=== PATIENT | female | born 1950 | race Caucasian/White ===

== ENCOUNTER 2023-07-03 16:47 | Emergency (ER) | payer MEDICAID, OTHER ==
[~2023-07-03] VITALS: Ht 154.9 cm; Wt 68.0 kg
[2023-07-03 16:49] VITALS: O2SAT 100
[2023-07-03] MEDS ORDERED: ONDANSETRON HCL 4MG/2ML INJ IV STA (16:54)
[2023-07-03] MEDS ORDERED: SODIUM CHLORIDE 0.9% 1,000 ML IV ONE (17:00)
[2023-07-03 18:11] LABS: EOSINOPHILS % 0.9 % (0.0-5.0); HEMATOCRIT. 41.2 % (36.0-48.0); HEMOGLOBIN. 13.9 g/dL (12.0-16.0); LYMPHOCYTES % 9.5 % (20.0-50.0); MEAN CORPUSCULAR HEMOGLOBIN 29.6 pg (28.0-32.0); MEAN CORPUSCULAR HGB CONC 33.8 g/dL (31.0-37.0); MEAN CORPUSCULAR VOLUME 87.6 fL (81.0-99.0); MEAN PLATELET VOLUME 8.6 fl (7.4-10.4); MONOCYTES % 9.7 % (2.0-8.0); NEUTROPHILS % 78.9 % (40.0-76.0); PLATELET 125 x1000/uL (130-400); RED CELL DISTRIBUTION WIDTH 13.5 % (11.6-14.6); WHITE BLOOD COUNT 7.6 x1000/uL (4.5-11.0)
[2023-07-03 18:20] LABS: CHLORIDE 106 mEq/L (98-107); INDEX HEMOLYSI 1 (1-3); INDEX ICTERIC 1 (1-4); INDEX LIPEMIC 1 (1-3); POTASSIUM 4.1 mEq/L (3.5-5.1); SODIUM 137 mEq/L (136-145)
[2023-07-03 18:36] LABS: ALANINE AMINOTRANSFERASE 32 IU/L (13-61); ALBUMIN 3.3 g/dL (3.4-5.0); ASPARTATE AMINOTRANSFERASE 33 IU/L (15-37); BILIRUBIN TOTAL 0.5 mg/dL (0.1-1.0); CALCIUM 8.3 mg/dL (8.5-10.1); CARBON DIOXIDE 28 mEq/L (21-32); CREATININE 0.7 mg/dL (0.6-1.3); GLUCOSE 118 mg/dL (70-105); PROTEIN TOTAL 7.3 g/dL (6.0-8.3); TROPONIN I HIGH SENSITIVITY 23 ng/L (<54); UREA NITROGEN BLOOD 17 mg/dL (7-21)
[2023-07-03 21:18] LABS: CLARITY URINE CLEAR (CLEAR); COLOR URINE YELLOW (YELLOW); GLUCOSE URINE 3+ (NEGATIVE); KETONES URINE 1+ (NEGATIVE); LEUKOCYTE ESTERASE URINE TRACE (NEGATIVE); NITRITE URINE POSITIVE (NEGATIVE); OCCULT BLOOD URINE 1+ (NEGATIVE); PH URINE 5.5 (4.5-8.0); PROTEIN URINE 2+ (NEGATIVE); SPECIFIC GRAVITY URINE 1.026 (1.005-1.030)
[2023-07-03 21:49] LABS: BACTERIA URINE 4+; RBC URINE 0-2 /hpf (0-2); SQUAMOUS EPITHELIAL CELL URINE RARE /lpf (RARE/1+)
[2023-07-03] MEDS ORDERED: CEFP200T13 MT (23:25)
[2023-07-03] MEDS ORDERED: CEFTRIAXONE 1GM PREMIX 50 ML IV ONE (23:30)
[2023-07-04] MEDS ORDERED: ONDANSETRON HCL 4MG/2ML INJ IV NR (00:30)
[2023-07-04 03:50] VITALS: BP 155/61; PULSE 73; RESP 16; TEMP 98.3
== END 2023-07-04 04:00 | disposition home or self-care (01) ==
LOC: ER 16:47
DX: R53.1 Weakness (principal); R11.2 Nausea with vomiting, unspecified; E11.9 Type 2 diabetes mellitus without complications; E78.00 Pure hypercholesterolemia, unspecified; I10 Essential (primary) hypertension
CPT/HCPCS: 80053; 81003; 83690; 85025; 87086; 87186; 84484; 87077; 36415; 71045; 96365; 99284; 96375; J7030; J0696; J2405; Z7610

== ENCOUNTER 2025-10-31 23:18 | Inpatient (IN) | payer MEDICAID ==
[~2025-10-31] VITALS: Ht 157.5 cm; Wt 65.3 kg
[~2025-10-31 23:18] MED LIST: CEFP200T13 MT
[2025-10-31] MEDS: SODIUM CHLORIDE 0.9% 1,000 ML IV ONE (23:38)
[2025-10-31] MEDS: KETOROLAC 15MG/ML VIAL IV ONE (23:45)
[2025-10-31] MEDS: METOCLOPRAMIDE HCL 10MG/2ML VIAL IV ONE (23:45)
[2025-10-31 23:58] LABS: HEMATOCRIT. 46.0 % (36.0-48.0); HEMOGLOBIN. 15.1 g/dL (12.0-16.0); MEAN PLATELET VOLUME 9.3 fl (7.4-10.4); PLATELET 157 x1000/uL (130-400); RED BLOOD CELL COUNT 5.15 mill/uL (4.2-5.4); RED CELL DISTRIBUTION WIDTH 13.6 % (11.6-14.6)
[2025-11-01] VITALS (8 sets, daily range): BP systolic 106–171; BP diastolic 50–86; PULSE 80–138; RESP 18–20; TEMP 36.3–37.1; O2SAT 90–98
[2025-11-01 00:06] LABS: CREATININE 0.7 mg/dL (0.6-1.0); PROTEIN TOTAL 5.7 g/dL (6.0-8.3); UREA NITROGEN BLOOD 11 mg/dL (9-23)
[2025-11-01 00:07] LABS: ASPARTATE AMINOTRANSFERASE 18 IU/L (<34); BILIRUBIN DIRECT 0.2 mg/dL (<=3.0); TROPONIN I HIGH SENSITIVITY 5 ng/L (3.0-34)
[2025-11-01 00:08] LABS: BILIRUBIN TOTAL 0.5 mg/dL (0.1-1.0)
[2025-11-01] MEDS: ACETAMINOPHEN 500MG TABLET PO ONE (00:31)
[2025-11-01] MEDS: PIPERACILLIN/TAZO 3.375G/50ML 50 ML IV ONE (00:38)
[2025-11-01] MEDS: SODIUM CHLORIDE 0.9% 1,000 ML IV ONE (00:45)
[2025-11-01] MEDS: DILTIAZEM HCL 5MG/ML 5ML VIAL IV ONE (00:51)
[2025-11-01 01:09] LABS: CLARITY URINE CLOUDY (CLEAR); COLOR URINE YELLOW (YELLOW); GLUCOSE URINE 3+ (NEGATIVE); KETONES URINE 2+ (NEGATIVE); LEUKOCYTE ESTERASE URINE 1+ (NEGATIVE); NITRITE URINE NEGATIVE (NEGATIVE); OCCULT BLOOD URINE 2+ (NEGATIVE); PH URINE 5.5 (4.5-8.0); PROTEIN URINE 2+ (NEGATIVE); SPECIFIC GRAVITY URINE 1.039 (1.005-1.030); UROBILINOGEN URINE 0.2 E.U./dL (0.2-1.0)
[2025-11-01] MEDS: VANCOMYCIN 1G PREMIX 200 ML IV ONE (01:35)
[2025-11-01 01:44] LABS: SQUAMOUS EPITHELIAL CELL URINE 3+ /lpf (RARE/1+)
[2025-11-01 01:45] LABS: BACTERIA URINE 1+; WBC URINE 25-50 /hpf (0-2)
[2025-11-01 03:56] LABS: EOSINOPHILS % MANUAL 1.0 % (0.0-5.0); LYMPHOCYTES % MANUAL 4.0 % (20.0-60.0); MONOCYTES % MANUAL 3.0 % (2.0-8.0); NEUTROPHILS % MANUAL 92.0 % (45.0-75.0)
[2025-11-01 03:57] LABS: PLATELET ESTIMATE NORMAL
[2025-11-01] MEDS ORDERED: IOHEXOL-350 100 ML BOTTLE ONE (04:21)
[2025-11-01 04:37] LABS: INFLUENZA TYPE A Presumptive Negative (Pres. Neg.); INFLUENZA TYPE B Presumptive Negative (Pres. Neg.)
[2025-11-01 04:38] LABS: RESPIRATORY SYNCYTIAL VIRUS Not Detected (Not Detectd)
[2025-11-01] MEDS ORDERED: EMPA10TA MT (05:08)
[2025-11-01] MEDS ORDERED: APIX5TAB MT (05:09)
[2025-11-01] MEDS ORDERED: METO-396 PO (05:11)
[2025-11-01] MEDS ORDERED: VALS80TA30 PO (05:12)
[2025-11-01] MEDS ORDERED: GLIM2TAB30 MT (05:13)
[2025-11-01] MEDS ORDERED: DEXTROSE 50% WATER 50ML SYRINGE IV PRN (05:30)
[2025-11-01] MEDS: GLIMEPIRIDE 2MG TABLET PO SCH (07:20)
[2025-11-01] MEDS: BLOOD SUGAR DIAGNOSTIC STRIP TEST SCH (07:47)
[2025-11-01] MEDS: INSULIN LISPRO 100 UNITS/ML SUBCUT SCH (07:48)
[2025-11-01] MEDS: LOSARTAN 50 MG TABLET PO SCH (10:13)
[2025-11-01] MEDS: METOPROLOL TARTRATE 25MG TABLET PO SCH (10:13)
[2025-11-01] MEDS: EMPAGLIFLOZIN 10MG TABLET PO SCH (10:13)
[2025-11-01] MEDS: APIXABAN 5 MG TABLET PO SCH (10:13)
[2025-11-01] MEDS: ACETAMINOPHEN 325MG TABLET PO PRN (10:30)
[2025-11-01 12:28] LABS: HEMATOCRIT. 44.0 % (36.0-48.0); HEMOGLOBIN. 14.4 g/dL (12.0-16.0); MEAN PLATELET VOLUME 8.7 fl (7.4-10.4); PLATELET 123 x1000/uL (130-400); RED BLOOD CELL COUNT 4.94 mill/uL (4.2-5.4); RED CELL DISTRIBUTION WIDTH 13.5 % (11.6-14.6)
[2025-11-01] MEDS: IPRATROPIUM/ALBUTEROL 0.5-3(2.5)MG/3ML NEB HHN SCH (12:30)
[2025-11-01 13:22] LABS: HEPATITIS C AB NON REACTIVE (Neg) (Negative)
[2025-11-01 15:22] LABS: BAND% 12.0 % (1.0-6.0); EOSINOPHILS % MANUAL 1.0 % (0.0-5.0); LYMPHOCYTES % MANUAL 5.0 % (20.0-60.0); MONOCYTES % MANUAL 6.0 % (2.0-8.0); NEUTROPHILS % MANUAL 76.0 % (45.0-75.0)
[2025-11-01 15:23] LABS: PLATELET ESTIMATE SLIGHTLY DECREASED
[2025-11-01] MEDS: DIGOXIN 500MCG/2ML AMP IV SCH (15:49)
[2025-11-02] VITALS (11 sets, daily range): BP systolic 115–142; BP diastolic 41–80; PULSE 75–113; RESP 17–20; TEMP 36.4–37.5; O2SAT 90–99
[2025-11-02] MEDS: METOPROLOL TARTRATE 5MG/5ML VIAL IV PRN (03:12)
[2025-11-02] MEDS: DIPHENOXYLATE/ATROPINE 2.5/0.025MG TABLET PO PRN (12:36)
[2025-11-02 18:58] LABS: BASOPHILS % 0.9 % (0.0-2.0); EOSINOPHILS % 2.6 % (0.0-5.0); HEMATOCRIT. 40.4 % (36.0-48.0); HEMOGLOBIN. 13.5 g/dL (12.0-16.0); LYMPHOCYTES % 17.4 % (20.0-50.0); MEAN PLATELET VOLUME 8.4 fl (7.4-10.4); MONOCYTES % 9.7 % (2.0-8.0); NEUTROPHILS % 69.4 % (40.0-76.0); PLATELET 112 x1000/uL (130-400); RED BLOOD CELL COUNT 4.54 mill/uL (4.2-5.4); RED CELL DISTRIBUTION WIDTH 13.5 % (11.6-14.6)
[2025-11-02 19:07] LABS: CREATININE 0.7 mg/dL (0.6-1.0)
[2025-11-02 19:08] LABS: UREA NITROGEN BLOOD 16 mg/dL (9-23)
[2025-11-03] VITALS (9 sets, daily range): BP systolic 116–136; BP diastolic 57–96; PULSE 89–119; RESP 16–21; TEMP 36.3–36.4; O2SAT 96–100
[2025-11-03 08:38] LABS: CREATININE 0.6 mg/dL (0.6-1.0); UREA NITROGEN BLOOD 15 mg/dL (9-23)
[2025-11-03 08:46] LABS: BASOPHILS % 0.7 % (0.0-2.0); EOSINOPHILS % 3.3 % (0.0-5.0); HEMATOCRIT. 41.5 % (36.0-48.0); HEMOGLOBIN. 13.7 g/dL (12.0-16.0); LYMPHOCYTES % 16.0 % (20.0-50.0); MEAN PLATELET VOLUME 8.7 fl (7.4-10.4); MONOCYTES % 7.0 % (2.0-8.0); NEUTROPHILS % 73.0 % (40.0-76.0); PLATELET 117 x1000/uL (130-400); RED BLOOD CELL COUNT 4.67 mill/uL (4.2-5.4); RED CELL DISTRIBUTION WIDTH 13.6 % (11.6-14.6)
[2025-11-03] MEDS: POLYVINYL ALCOHOL OPHTH DROPS 15ML EACHEYE PRN (12:17)
[2025-11-04] VITALS: BP 134/81; PULSE 103; RESP 18; TEMP 36.6; O2SAT 100
[2025-11-04 01:38] VITALS: PULSE 104; RESP 22; O2SAT 97
[2025-11-04 04:00] VITALS: BP 130/79; PULSE 96; RESP 19; TEMP 36.6; O2SAT 100
[2025-11-04 07:26] LABS: BASOPHILS % 0.8 % (0.0-2.0); EOSINOPHILS % 4.4 % (0.0-5.0); HEMATOCRIT. 40.1 % (36.0-48.0); HEMOGLOBIN. 13.4 g/dL (12.0-16.0); LYMPHOCYTES % 17.5 % (20.0-50.0); MEAN PLATELET VOLUME 8.6 fl (7.4-10.4); MONOCYTES % 12.0 % (2.0-8.0); NEUTROPHILS % 65.3 % (40.0-76.0); PLATELET 114 x1000/uL (130-400); RED BLOOD CELL COUNT 4.53 mill/uL (4.2-5.4); RED CELL DISTRIBUTION WIDTH 13.2 % (11.6-14.6)
[2025-11-04 08:00] VITALS: BP 152/66; PULSE 72; RESP 16; TEMP 36.3; O2SAT 96
[2025-11-04 09:10] LABS: CREATININE 0.6 mg/dL (0.6-1.0); UREA NITROGEN BLOOD 15 mg/dL (9-23)
[2025-11-04 12:00] VITALS: BP 143/53; PULSE 91; RESP 17; TEMP 35.8; O2SAT 95
[2025-11-04 14:42] VITALS: BP 143/53; PULSE 91; RESP 17; TEMP 96.5
== END 2025-11-04 15:12 | disposition home or self-care (01) | DRG 194 ==
LOC: ER 23:18 → 6WST 11-01 01:37 → EDBEDREQ 11-01 01:40 → EDBEDREQTM 11-01 01:40 → ENRESERV 11-01 01:58
PROVIDERS: ADMIT Internal Medicine; ATTEND Internal Medicine
DX: I11.0 Hypertensive heart disease with heart failure (principal); Z79.01 Long term (current) use of anticoagulants; I20.0 Unstable angina; R65.10 Systemic inflammatory response syndrome (SIRS) of non-infectious origin without acute organ dysfunction; E11.9 Type 2 diabetes mellitus without complications; E78.00 Pure hypercholesterolemia, unspecified; I50.31 Acute diastolic (congestive) heart failure; I48.91 Unspecified atrial fibrillation; Z86.73 Personal history of transient ischemic attack (TIA), and cerebral infarction without residual deficits; Z79.84 Long term (current) use of oral hypoglycemic drugs
CPT/HCPCS: 36415; 71045; 71275; 80048; 80076; 81003; 82010; 82962; 83036; 83605; 83735; 83880; 84145; 84443; 84484; 85025; 86705; 87340; 87420; 87426; 87804; 93005; 93306; 94070; 94640; 94664; 96361; 96374; 96375; 97165; 98960; 99291; A4615; J1160; J1815; J1885; J2543; J2765; J3373; J3490; J7030; Q9967